=== PATIENT | female | born 1995 | race Caucasian/White ===

== ENCOUNTER 2022-09-29 08:33 | Emergency (ER) | payer OTHER, SELFPAY ==
[2022-09-29] VITALS (21 sets, daily range): BP systolic 100–108; BP diastolic 63–88; PULSE 77–106; RESP 13–20; TEMP 36.2; O2SAT 100
--- NOTE | ~2022-09-29 | CT_ITS ---
CT of the Abdomen and Pelvis: Indication: Abdominal pain Technique: 2.5 mm axial scans were obtained through the abdomen and pelvis following intravenous adm inistration of 100 cc of Omnipaque 350. Dose reduction technique was used on this scan by utilizing a utomated exposure control and iterative reconstruction technique. The dose-length product (DLP) was 2 88.30 mGy-cm. Findings: Scans through the lung bases are unremarkable. The liver, spleen, pancreas, adrenals and kidneys are within normal limits. Cholecystectomy clips are present. No evidence of aortic aneurysm. No lymphadenopathy. No bowel obstruction or bowel wall thickening. There is no evidence to suggest acute appendicitis. Images through the pelvis were performed. Urinary bladder unremarkable. No adnexal mass seen. Trace p elvic ascites. Impression: Trace pelvic ascites, nonspecific. Consider ruptured ovarian cyst, possibly pelvic inflammatory disea se. Reviewed, dictated and finalized at [facility]. Impression: Trace pelvic ascites, nonspecific. Consider ruptured ovarian cyst, possibly pel erica inflammatory disease.
--- NOTE | 2022-09-29 09:09 | ED.GENADULT ---
HPI - General Adult General Chief complaint: Nausea/Vomiting/Diarrhea Stated complaint: GI Virus Time Seen by Provider: 09/29/22 08:40 Source: RN notes reviewed History of Present Illness HPI narrative: Patient presents emergency room from home for nausea vomiting and diarrhea. Patient states symptoms began 5 days ago. States that initially began with numerous episodes of nausea vomiting but has not vomited now for 4 days she states is progressed into diarrhea with numerous episodes of diarrhea today. States has been associate with abdominal pain that is diffuse throughout the abdomen described as crampy in nature. States that she has had no measured fevers or chills she denies any chest pain shortness of breath or any other symptoms. States that she has been trying to take Tylenol and ibuprofen at home for the symptoms with minimal regular Related Data Allergies Allergy/AdvReac Type Severity Reaction Status Date / Time carbamazepine Allergy Seizure Verified 09/29/22 08:51 Sulfa (Sulfonamide Allergy Hives Verified 09/29/22 08:51 Antibiotics) Review of Systems Review of Systems: Gen.: Denies fevers or chills ENT: Denies congestion Respiratory: Denies shortness of breath or cough CV: Denies chest pain or palpitations GI: See HPI Musculoskeletal: Denies back pain or muscle pain Neuro: Denies numbness, tingling, weakness or focal weakness Skin: Denies rash Except as documented, all other systems reviewed and negative PMF Past Medical History Medical History (Updated 09/29/22 @ 13:10 by Js Diehl DO) Patient denies significant medical history Social History Social History (Updated 09/29/22 @ 09:10 by Js Diehl DO) Smoking status: Never smoker Exam Narrative: APPEARANCE: No acute distress, nontoxic, resting in bed HEENT: Normocephalic, atraumatic, OMM RESPIRATORY: No respiratory distress, clear to auscultation bilaterally with no rhonchi wheezing or rales CARDIOVASCULAR: RRR s murmur ABDOMINAL: Soft nondistended diffusely tender to palpation no rebound or guarding MUSCULOSKELETAl: Moves all extremities. No clubbing, cyanosis or edema. NEURO: Awake and alert. Following commands, speech normal, no focal deficits SKIN:: Warm, dry. Normal Color PSYCHIATRIC: Normal affect/mood Course Course Emergency Course: Patient up into the restroom came back with continued nausea. Discussed with patient states she has been trying to hydrate herself at home but is been unable. At this time elevated liver enzymes and signs of dehydration will patient states that she works at [employer] and request transfer back to [employer] Discussed with Dr. [facility] who accepts transfer at this time Patient plan for transfer all questions answered in agreement at this time Vital Signs Vital signs: Vital Signs Temperature 97.2 F L 09/29/22 08:47 Pulse Rate 106 H 09/29/22 08:47 Respiratory Rate 18 09/29/22 08:47 Blood Pressure 108/88 09/29/22 08:47 Pulse Oximetry 100 09/29/22 08:47 Oxygen Delivery Room Air 09/29/22 08:47 Temperature 97.2 F L 09/29/22 08:47 Pulse Rate 84 09/29/22 13:00 Respiratory Rate 14 09/29/22 13:00 Blood Pressure 105/63 09/29/22 12:31 Pulse Oximetry 100 09/29/22 12:31 Oxygen Delivery Room Air 09/29/22 08:47 Medical Decision Making Differential Diagnosis Differential Diagnosis: Patient presents for nausea vomiting diarrhea that began 5 days ago diffuse abdominal pain consistent on exam patient has elevated LFTs but total bili is normal as well as lipase. The patient has had a previous cholecystectomy CT scan does not show any acute process hepatitis panel was ordered and is negative as well and patient does have signs of dehydration question dehydration as cause versus other viral etiology patient does have questionably mild UTI started on Rocephin and at this time has been trying to hydrate at home has been unsu
[2022-09-29] MEDS: SODIUM CHLORIDE 0.9% IV 1,000 ML 999 ML IV CONT ×2 (09:18→10:26)
[2022-09-29] MEDS: FAMOTIDINE 20 MG/2 ML VIAL IV PUSH (09:19)
[2022-09-29 09:23] LABS: Basophils Percent Auto 0.7 % (0.2-1.2); Hematocrit 45.1 % (37.0-47.0); Hemoglobin 15.4 g/dL (12.0-15.0); Immature Granulocyte Absolute 0.01 K/mm3 (0.00-0.031); Immature Granulocyte Percent A 0.3 % (0-0.5); Lymphocytes Absolute Auto 1.08 K/mm3 (0.9-3.2); Lymphocytes Percent Auto 36.6 % (18.3-44.2); Mean Corpuscular HGB Conc 34.1 g/dl (32-36); Mean Corpuscular Hemoglobin 30.4 pg (26-34); Mean Corpuscular Volume 89.1 fl (80-100); Mean Platelet Volume 9.9 fl (7.4-10.4); Monocytes Absolute Auto 0.5 K/mm3 (0.1-0.6); Monocytes Percent Auto 15.9 % (2.6-8.5); Neutrophils Absolute Auto 1.3 K/mm3 (1.3-6.7); Neutrophils Percent Auto 45.5 % (45.5-73.1); Platelet Count Result 147 k/mm3 (150-375); Red Blood Count 5.06 M/mm3 (4.2-5.4); Red Cell Distribution Width 11.8 % (11.5-14.5)
[2022-09-29 09:35] LABS: Alanine Aminotransferase 623 U/L (6-35); Albumin Level 4.4 g/dL (3.5-5.1); Alkaline Phosphatase 392 U/L (38-126); Anion Gap 11 mmol/L (8-16); Aspartate Amino Transferase 412 U/L (14-36); Bilirubin,Total 1.1 mg/dL (0.2-1.3); Blood Urea Nitrogen 9 mg/dL (7-17); Carbon Dioxide 27 mmol/L (22-30); Chloride 97 mmol/L (98-107); Estimated CRCL calculation 114 ml/min; Estimated Glomerular Filt Rate > 60; Glucose 78 mg/dL (65-110); Lipase 40 U/L (23-300); Potassium 3.1 mmol/L (3.4-5.0); Sodium 135 mmol/L (137-145)
[2022-09-29 10:05] LABS: Appearance Urine Cloudy (Clear); Bilirubin Urine Negative (Negative); Blood Urine 2+ (Negative); Color Urine Dark Yellow (Yellow); Glucose Urine UA Negative (Negative); Ketones Urine 4+ mg/dL (Negative); Leukocyte Esterase Ur Negative LEU/UL (Negative); Nitrate Urine Negative (Negative); Non Pathogenic Casts 0-2; Protein Urine Trace mg/dL (Negative); Specific Grav Ur 1.018 (1.001-1.035); Squamous Epithelial Cell Urine Moderate /hpf (Few)
[2022-09-29 10:07] LABS: Mucus Urine Present /lpf
[2022-09-29 10:09] LABS: Add Urine Microscopic? YES
[2022-09-29 10:10] LABS: Burr Cells 3+ (NORMAL); Platelet Estimate Adequate (Adequate); Schistocytes None Seen (NORMAL)
[2022-09-29 10:23] LABS: Bacteria Urine 3+ /hpf; Need Manual Microscopic Yes
[2022-09-29] MEDS: POTASSIUM CHLORIDE 20 MEQ TABLET 40 MEQ PO (10:28)
[2022-09-29 11:20] LABS: Hepatitis B Surface Antigen Negative (Negative)
[2022-09-29 11:26] LABS: HAV RESULT Negative (Negative); Hepatitis B Core IgM Result Negative (Negative)
[2022-09-29 11:37] LABS: Hepatitis C Virus Antibody Negative (Negative)
[2022-09-29] MEDS: SODIUM CHLORIDE 0.9% IV 1,000 ML 125 ML IV CONT (12:44)
[2022-09-29 13:44] LABS: Influenza A QL RT-PCR Negative (Negative); Influenza B QL RT-PCR Negative (Negative); SARS-CoV-2 RNA PCR Negative
--- NOTE | 2022-09-29 13:59 | PC.NURSE ---
bed assigned at [facility] RM [id number] Report to [phone]
--- NOTE | 2022-09-29 14:12 | PC.NURSE ---
After discussion with Dr Diehl, pt refused EMS transport to [facility]. Pt ok to be transported by by POV. iv removed by staff prior to departure f rom this ED
--- NOTE | 2022-09-29 14:27 | PC.NURSE ---
Patient to transport to [facility] via private vehicle. RN to call back to give report prior to patient leaving this department
--- NOTE | 2022-09-29 14:38 | PC.NURSE ---
[employer] truck cancelled patient going POV
== END 2022-09-29 14:53 | disposition short-term general hospital (02) ==
PROVIDERS: Emergency Provider Emergency Medicine; PCP Internal Medicine
DX: R79.89 Other specified abnormal findings of blood chemistry (principal); N39.0 Urinary tract infection, site not specified; E86.0 Dehydration; R19.7 Diarrhea, unspecified; R11.2 Nausea with vomiting, unspecified; Z20.822 Contact with and (suspected) exposure to COVID-19
CPT/HCPCS: 36415; 74177; 80053; 80074; 81001; 81025; 83690; 85025; 87077; 87086; 87186; 87636; 96361; 96365; 96375; 99284; A9270; J0696; J7030; Q9967